=== PATIENT | male | born 1970 | race Caucasian/White ===

== ENCOUNTER 2016-08-24 15:06 | Outpatient (CLI) | payer MEDICARE, OTHER ==
[2016-01-27 12:47] VITALS: BP 132/65
[2016-08-24 15:37] LABS: BASOPHILS % 0.9 (0.0-1.5); EOSINOPHILS % 2.4 % (0.0-6.8); MEAN CORPUSCULAR HEMOGLOBIN 33.2 pg (28.0-34.0); MEAN CORPUSCULAR VOLUME 101.2 fl (80.0-100.0); MONOCYTES % 5.8 % (0.0-11.0); NEUTROPHILS # 5.4 # k/uL (1.4-7.7)
[2016-08-24 16:14] LABS: eGFR (African) > 60; eGFR (Non-African) > 60
== END 2016-08-24 15:07 ==
LOC: LAB 15:06
PROVIDERS: ATTEND Family Medicine
DX: G40.409 Other generalized epilepsy and epileptic syndromes, not intractable, without status epilepticus (principal)
CPT/HCPCS: 36415; 80048; 80156; 85025

== ENCOUNTER 2017-03-07 11:02 | Outpatient (CLI) | payer MEDICARE, OTHER ==
[2016-01-27 12:47] VITALS: BP 132/65
== END 2017-03-07 11:03 ==
LOC: OUT 11:02
PROVIDERS: ATTEND Family Medicine
DX: E66.09 Other obesity due to excess calories (principal)
CPT/HCPCS: G0270; G0463

== ENCOUNTER 2017-05-01 17:29 | Emergency (ER) | payer MEDICARE, OTHER ==
--- NOTE | 2017-05-01 17:36 | ED Physician Documentation ---
General Adult - HISTORIAN Historian: patient - HPI Chief Complaint: Fever Onset: days ago (4 days) Timing: still present Severity: moderate - ROS CONST: fever, chills GI/: other (constipation) - PAST HX Past History: other (neurogenic bladder) Surgeries/Procedures: other (Bilat BKA) Immunizations: influenza Allergies/Adverse Reactions: Allergies Allergy/AdvReac Type Severity Reaction Status Date / Time No Known Allergies Allergy Verified 05/01/17 17:45 Home Medications: Ambulatory Orders Medication Instructions Recorded Acetaminophen [Pain Relief Extra 1,000 mg PO BID PRN 01/20/16 Strength] Carbamazepine [Tegretol] 200 mg PO BID 01/20/16 - SOCIAL HX Smoking History: non-smoker Alcohol Use: none Drug Use: none - FAMILY HX Family History: Yes - VITAL SIGNS Vital Signs: Vital Signs Temp Pulse Resp BP Pulse Ox 132/65 01/27/16 12:35 - REVIEWED ASSESSMENTS Nursing Assessment Reviewed: Yes Vitals Reviewed: Yes General Adult Physical Exam - PHYSICAL EXAM GENERAL APPEARANCE: mild distress EENT: eye inspection normal (some conjunctival erythema), no signs of dehydration. No: pharyngeal erythema NECK: normal inspection, thyroid normal, supple. No: lymphadenopathy, stiff neck RESPIRATORY: no resp distress, chest non-tender, rhonchi (course upper airway sounds). No: wheezes, rales CVS: reg rate & rhythm, heart sounds normal, equal pulses, no murmur, no gallop ABDOMEN: soft, no organomegaly, normal bowel sounds, no distension, non-tender. No: rebound, guarding BACK: no CVA tenderness SKIN: warm/dry, other (mild mottling, at baseline) NEURO: oriented X3, mood/affect nml, cognition normal (at baseline) Discharge Clincal Impression: Influenza A Referrals: Scotty Gruber MD [Primary Care Provider] - 2 Days Additional Instructions: Drink a lot of fluids. Get plenty of rest. Take Tamiflu twice a day as directed. If any further problems develop to see primary care provider or return to the ED. Condition: Stable Disposition: 01 HOME, SELF-CARE Decision to Admit: NO Date of Decison to Admit: 05/01/17 Decision Time: 17:47
[2017-05-01] MEDS ORDERED: 0.9 % SODIUM CHLORIDE 1,000 ML IV ONE (19:32)
[2017-05-01 19:45] LABS: APPEARANCE,URINE CLEAR (CLEAR); COLOR,URINE YELLOW (YELLOW); OCCULT BLOOD,URINE 2+ (NEGATIVE); PH URINE 5.5 (5.0 - 8.0); UROBILINOGEN URINE 0.2 Eu (0.2-1.0)
[2017-05-01 20:31] LABS: eGFR (African) > 60; eGFR (Non-African) > 60
[2017-05-02 06:10] VITALS: BP 146/72
== END 2017-05-01 21:30 | disposition home or self-care (01) ==
LOC: ED 17:29
DX: J09.X2 Influenza due to identified novel influenza A virus with other respiratory manifestations (principal)
CPT/HCPCS: 80053; 81002; 87400; 99282; S1016

== ENCOUNTER 2017-05-04 10:24 | Emergency (ER) | payer MEDICARE, OTHER ==
--- NOTE | 2017-05-04 10:29 | ED Physician Documentation ---
Fall - HISTORIAN Historian: patient - HPI Stated Complaint: cough and fall Chief Complaint: Fall Onset: just prior to arrival Where: home Context: slipped r: mild Associated Symptoms:: no loss of consciousness Location of Pain/Injury: chest (right side per his report ) Injury to Right Extremity: other (right chest ) Injury to Left Extremity: none Further Comments: yes (per report and pt he was on shower chair and slipped. Denies any head trauma. He is a TBI history. He has recently had Influenza. No fever. right side of chest is only complaint. He feels short on air from not wanting to take a deep breath) - ROS CONST: recent illness (influenza ) NEURO: denies: dizziness MS/SKIN/LYMPH: weakness (from recent influenza ) CVS/RESP: chest pain, shortness of breath - PAST HX Past History: other (TBI ) Immunizations: UTD Allergies/Adverse Reactions: Allergies Allergy/AdvReac Type Severity Reaction Status Date / Time No Known Allergies Allergy Verified 05/04/17 10:48 Home Medications: Ambulatory Orders Medication Instructions Recorded Acetaminophen [Tylenol Extra 500 mg PO BID 05/04/17 Strength] Albuterol Sulfate [Proair HFA] 1 inh IH TID PRN #1 hfa.aer.ad 05/04/17 Carbamazepine [Tegretol Xr] 100 mg PO HS 05/04/17 Carbamazepine [Tegretol] 200 mg PO AM 05/04/17 Cyclobenzaprine HCl 5 mg PO TID PRN #20 tablet 05/04/17 Levofloxacin [Levaquin] 750 mg PO D #10 tablet 05/04/17 - SOCIAL HX Smoking History: non-smoker Alcohol Use: none Drug Use: none - FAMILY HX Family History: none - VITAL SIGNS Vital Signs: Vital Signs Temp Pulse Resp BP Pulse Ox 146/72 05/01/17 21:30 - REVIEWED ASSESSMENTS Nursing Assessment Reviewed: Yes Vitals Reviewed: Yes Progress - Progress Progress: 1223: He is complaining of pain in right chest and upper back. DG 1330: Pain is less. States he is more comfortable DG ED Results Lab/Radiology - Radiology Radiology Impressions: Examination: CT chest History: Cough. Comparison exams: Plain film chest dated 28 September 2015 Technique: CT chest without contrast protocol Findings: Significant posterior parenchymal infiltrates, right greater than left. Generalized increased interstitial prominence. Mild posterior pleural thickening/small effusions. Anterior mediastinum and adelina are without gross mass or pathologic adenopathy: though sensitivity is reduced on a noncontrast exam. Thoracic aorta without evidence for aneurysm. Cardiac silhouette not enlarged. No pericardial effusion. Lower neck structures are without gross abnormality. Bilateral renal calcifications. Thoracic spine degenerative spurring. Impression: Right greater than left lung base parenchymal infiltrates associated with generalized congestive edema. Small posterior pleural effusions. Electronically signed on May 04, 2017 11:54:46 AM WOMEN SPECIALIST by: Randy Suarez Physical Exam - Physical Exam General Appearance: no acute distress Head: non-tender, no swelling, no obvious injury Neck: non-tender Eye: MONA ENT: nml external inspection Resp/CVS: rib tenderness (right side . ) Abdomen: soft, normal bowel sounds Neuro: oriented x3 Skin: color nml, no rash Joint: joints nml (upper ) - Victor Hugo Coma Score Eyes Open: Spontaneous Speech: Oriented Motor: Obeys Commands Discharge Clincal Impression: Pneumonia Qualifiers: Pneumonia type: due to unspecified organism Laterality: left Lung location: lower lobe of lung Qualified Code(s): J18.1 - Lobar pneumonia, unspecified organism Prescriptions: Albuterol Sulfate [Proair HFA] 1 inh IH TID PRN #1 hfa.aer.ad PRN Reason: Cough Cyclobenzaprine HCl 5 mg PO TID PRN #20 tablet PRN Reason: Pain Levofloxacin [Levaquin] 750 mg PO D #10 tablet Referrals: Scotty Gruber MD [Primary Care Provider] - 2 Days Comments: Cyclobenzaprine 5 mg - Take 1 by mouth every 8 hours as needed for muscle pain Levaquin 750 mg Take 1 by mouth daily Proair Inhale 2puffs by mouth every 4-6 hours as needed for cough Sit up as frequently as possible Cough and Deep breathe Increase fluids Watch for signs of worsening symptoms : Fever, Increased cough, Shortness of breath, Increased fatigue OTC meds for pain aide Return to ER for any concerning symptoms See PCP in 2-3 days Condition: Stable Disposition: 01 HOME, SELF-CARE Decision to Admit: NO Date of Decison to Admit: 05/04/17 Decision Time: 13:59
[2017-05-04] MEDS ORDERED: IPRATROPIUM/ALBUTEROL SULFATE 3 ML AMPUL.NEB NEB ONE (10:38)
[2017-05-04] MEDS ORDERED: KETOROLAC TROMETHAMINE 30 MG/1ML VIAL IVP ONE (12:02)
--- NOTE | 2017-05-04 12:43 | Diagnostic Imaging Report ---
KAILYN OVERTON [facility] [address] [facility] [address] [place], [place]. [address] Report Submission Date: May 04, 2017 11:54:46 AM CAMPUS COORDINATOR Patient Study Name: JESSICA MEJIA Date: May 04, 2017 11:18:07 AM CAMPUS COORDINATOR Modality Type: CT\SR Gender: M Description: CT CHEST W/O CONTRAST : 68 Institution: [facility] Physician: KAILYN OVERTON Examination: CT chest History: Cough. Comparison exams: Plain film chest dated 28 September 2015 Technique: CT chest without contrast protocol Findings: Significant posterior parenchymal infiltrates, right greater than left. Generalized increased interstitial prominence. Mild posterior pleural thickening/small effusions. Anterior mediastinum and adelina are without gross mass or pathologic adenopathy: though sensitivity is reduced on a noncontrast exam. Thoracic aorta without evidence for aneurysm. Cardiac silhouette not enlarged. No pericardial effusion. Lower neck structures are without gross abnormality. Bilateral renal calcifications. Thoracic spine degenerative spurring. Impression: Right greater than left lung base parenchymal infiltrates associated with generalized congestive edema. Small posterior pleural effusions. Electronically signed on May 04, 2017 11:54:46 AM CAMPUS COORDINATOR by: Randy DIAZ
[2017-05-04 12:57] LABS: BASOPHILS % 0.8 (0.0-1.5); EOSINOPHILS % 0.5 % (0.0-6.8); MEAN CORPUSCULAR HEMOGLOBIN 33.4 pg (28.0-34.0); MEAN CORPUSCULAR VOLUME 97.9 fl (80.0-100.0); MONOCYTES % 4.9 % (0.0-11.0); NEUTROPHILS # 6.8 # k/uL (1.4-7.7)
[2017-05-04 13:13] LABS: eGFR (African) > 60; eGFR (Non-African) > 60
[2017-05-04] MEDS ORDERED: methylPREDNISolone SOD SUCC 125 MG/2 ML VIAL IVP ONE (13:51)
[2017-05-04 14:48] VITALS: BP 147/95
[2017-05-04 17:35] LABS: APPEARANCE,URINE CLOUDY (CLEAR); COLOR,URINE AMBER (YELLOW); OCCULT BLOOD,URINE 3+ (NEGATIVE); PH URINE 5.5 (5.0 - 8.0); UROBILINOGEN URINE 0.2 Eu (0.2-1.0)
== END 2017-05-04 14:30 | disposition home or self-care (01) ==
LOC: ED 10:24
DX: J18.9 Pneumonia, unspecified organism (principal)
CPT/HCPCS: 36415; 71250; 80053; 80156; 81002; 83880; 85025; 87040; 94640; 96374; 96375; 99283; J1885; J2930; S1016

== ENCOUNTER 2017-05-31 13:02 | Outpatient (CLI) | payer MEDICARE, OTHER | END 2017-05-31 13:03 | LOC: LABRHC 13:02 | PROVIDERS: ATTEND Family Medicine | DX: T83.511A Infection and inflammatory reaction due to indwelling urethral catheter, initial encounter (principal) | CPT/HCPCS: 87086; 87186 ==

== ENCOUNTER 2017-10-15 10:04 | Outpatient (CLI) | payer MEDICARE, OTHER ==
--- NOTE | 2017-10-15 12:25 | Diagnostic Imaging Report ---
HAJA KENNEDY [facility] [address] [facility] [address] Report Submission Date: Oct 15, 2017 10:43:27 AM CDT Patient Study Name: JESSICA MEJIA Date: Oct 15, 2017 10:16:21 AM CDT Modality Type: DX Gender: M Description: CHEST : 68 Institution: [facility] Physician: HAJA KENNEDY Examination: PA and lateral chest. History: Evaluate lung hansen. CXR, RALES ON EXAM (Hx) Comparison exam: None provided. Findings: PA lateral chest demonstrate a normal cardiac and mediastinal silhouette. Mildly tortuous aorta. Parenchymal haziness involving the left lung base. No blunting of the costophrenic margins. Osseous structures are appropriate for age. Impression: Mild right lower lung infiltrate. No effusion. Electronically signed on Oct 15, 2017 10:43:27 AM CDT by: Randy DIAZ
== END 2017-10-15 10:06 ==
LOC: RAD 10:04
PROVIDERS: ATTEND Family Medicine
DX: R06.09 Other forms of dyspnea (principal); R73.9 Hyperglycemia, unspecified; G40.409 Other generalized epilepsy and epileptic syndromes, not intractable, without status epilepticus
CPT/HCPCS: 36415; 71046; 80156; 83036; 85379

== ENCOUNTER 2018-05-31 12:46 | Outpatient (CLI) | payer MEDICARE, OTHER ==
[2018-05-31 13:20] LABS: APPEARANCE,URINE CLEAR (CLEAR); COLOR,URINE YELLOW (YELLOW)
[2018-05-31 13:21] LABS: OCCULT BLOOD,URINE NEGATIVE (NEGATIVE); UROBILINOGEN URINE 0.2 Eu (0.2-1.0)
== END 2018-05-31 12:55 ==
LOC: LAB 12:46
PROVIDERS: ATTEND Nurse Practitioner Family
DX: R30.0 Dysuria (principal)
CPT/HCPCS: 81002; 87086

== ENCOUNTER 2018-07-05 17:08 | Outpatient (CLI) | payer MEDICARE, OTHER ==
[2018-07-05 17:24] LABS: APPEARANCE,URINE CLEAR (CLEAR); COLOR,URINE YELLOW (YELLOW); OCCULT BLOOD,URINE NEGATIVE (NEGATIVE); PH URINE 5.5 (5.0 - 8.0); UROBILINOGEN URINE 0.2 Eu (0.2-1.0)
== END 2018-07-05 17:15 ==
LOC: LAB 17:08
PROVIDERS: ATTEND Family Medicine
DX: N39.0 Urinary tract infection, site not specified (principal)
CPT/HCPCS: 81002

== ENCOUNTER 2018-09-20 16:30 | Outpatient (CLI) | payer MEDICARE, OTHER ==
[2018-10-09 12:59] LABS: APPEARANCE,URINE CLEAR (CLEAR); COLOR,URINE RED (YELLOW); OCCULT BLOOD,URINE 3+ (NEGATIVE); UROBILINOGEN URINE 0.2 Eu (0.2-1.0)
== END 2018-09-20 16:35 | disposition home or self-care (01) ==
LOC: LAB 16:30
PROVIDERS: ATTEND Family Medicine
DX: N39.0 Urinary tract infection, site not specified (principal)
CPT/HCPCS: 81002

== ENCOUNTER 2019-02-22 16:39 | Emergency (ER) | payer MEDICARE, OTHER ==
[2019-02-22 17:01] VITALS: BP 146/79
--- NOTE | 2019-02-22 17:36 | ED Physician Documentation ---
Upper Respiratory Symptoms - HISTORIAN Historian: patient - HPI Stated Complaint: sore throat Chief Complaint: Sore Throat Additional Information: 48 year old presents with mom to ER with c/o sore throat and nasal congestion. Sx's started this morning; caregiver was just diagnosed with strep. No fever, chills, nausea or vomiting. Onset: hours Duration: sudden-Onset Context: same sx Severity: mild Associated Symptoms: sore throat. denies: fever, chills - ROS CONST/EYES: denies: weakness CVS/RESP: none LYMPH: denies: rash GI/: none NEURO/PSYCH: denies: dizziness MS/SKIN: denies: muscle aches - PAST HX Lung Disease: none PE Risk Factors: other (TBI) Surgeries/Procedures: other (BBKA) Immunizations: influenza, UTD Allergies/Adverse Reactions: Allergies Allergy/AdvReac Type Severity Reaction Status Date / Time No Known Allergies Allergy Verified 02/22/19 17:02 Home Medications: Ambulatory Orders Medication Instructions Recorded Acetaminophen [Tylenol Extra 500 mg PO BID 05/04/17 Strength] Albuterol Sulfate [Proair HFA] 1 inh IH TID PRN #1 hfa.aer.ad 05/04/17 Cyclobenzaprine HCl 5 mg PO TID PRN #20 tablet 05/04/17 Fluticasone Propionate [Flonase 1 spray NS BID #1 bottle 02/22/19 Nasal [place]] - SOCIAL HX Smoking History: non-smoker Alcohol Use: none Drug Use: none - FAMILY HX Family History: none - VITAL SIGNS Vital Signs: Vital Signs Temp Pulse Resp BP Pulse Ox 97.7 F 78 19 146/79 98 02/22/19 17:15 02/22/19 17:15 02/22/19 17:15 02/22/19 17:15 02/22/19 17:15 - REVIEWED ASSESSMENTS Nursing Assessment Reviewed: Yes Vitals Reviewed: Yes Upper Respiratory Symptoms - EXAM General Appearance: no acute distress, alert EENT: eyes nml inspection, nml ENT inspection, lids & conjunct. nml, PERRL, ear nml, pharynx nml, airway nml Neck: normal inspection, supple Respiratory: breath sounds nml Abdomen: nml bowel sounds CVS: heart sounds normal Skin: color nml, no rash Neuro/Psych: oriented x3, neuro intact, mood/affect nml Discharge Clincal Impression: Nasal congestion Prescriptions: Fluticasone Propionate [Flonase Nasal [place]] 1 spray NS BID #1 bottle Referrals: Scotty Gruber MD [Primary Care Provider] - 2 Days Additional Instructions: Use nasal spray as directed Symptomatic treatment Follow up with PCP next week Condition: Good Disposition: 01 HOME, SELF-CARE Decision to Admit: NO Decision Time: 17:38
== END 2019-02-22 17:16 | disposition home or self-care (01) ==
LOC: ED 16:39
DX: R09.81 Nasal congestion (principal)
CPT/HCPCS: 87880; 99281; 99282

== ENCOUNTER 2019-02-26 10:28 | Outpatient (CLI) | payer MEDICARE, OTHER ==
[2019-02-26 11:11] LABS: APPEARANCE,URINE TURBID (CLEAR); COLOR,URINE YELLOW (YELLOW); OCCULT BLOOD,URINE NEGATIVE (NEGATIVE); PH URINE 5.5 (5.0 - 8.0); UROBILINOGEN URINE 0.2 Eu (0.2-1.0)
[2019-02-26 11:12] LABS: AMORPHOUS SEDIMENT,UR MODERATE (NEGATIVE)
== END 2019-02-26 10:33 ==
LOC: LAB 10:28
PROVIDERS: ATTEND Family Medicine
DX: R30.0 Dysuria (principal)
CPT/HCPCS: 81002